=== PATIENT | male | born 1940 | race Caucasian/White ===

== ENCOUNTER 2017-02-16 12:53 | Inpatient (IN) | payer MEDICARE, OTHER ==
--- NOTE | ~2017-02-16 | CN ---
Consultation Report [facility] [address] [place]. [address] NAME: MEG FINK : 41 STATUS : ADM IN PAT#: [id number] AGE: 77 ADM/REG DATE : 02/16/17 MR#: [id number] REPORT SERV DATE: 02/18/17 DICTATED BY: MARCELINA CASTRO DATE: 02/18/17 REPORT STATUS : Draft TRANSCRIBED BY: MODL DATE: 02/18/17 GI CONSULTATION DATE OF CONSULTATION: 02/18/2017 A 77-year-old male patient admitted on 02/16/2017. REASON FOR CONSULTATION: Evaluation and management of hepatic encephalopathy. HISTORY OF PRESENT ILLNESS: Mr. Fink is a 77-year-old male patient, who is known to Dr. Gutierrez as well as Dr. John Teresa in the outpatient setting, who presented to [facility] on 02/16/2017, with a chief complaint of confusion. 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 The daughter had reported intermittent confusion for several days. He had been in and out of the ER a couple of times, was given two weeks of lactulose. After completing the course of lactulose, his confusion increased. He was last seen in the office by Dr. John Teresa on 01/04/2017, for his regular office visit. At that time, he was not having any issues with confusion. He had no changes in his medication regimen. His cirrhosis is felt to be of course decompensated secondary to pancytopenia, portal hypertension, history of variceal GI bleeding. At that point in time, he was not a transplant candidate secondary to his other comorbidities. At that office visit, he had a MELD score of 13. He was to continue his torsemide at 100 but they were going to restart his spironolactone at 50 mg a day; however, that does not appear on his home medication sheet. His last ultrasound was in October with no signs of hepatocellular carcinoma. Currently he was admitted with an ammonia level of 99, it is 81 at present. Mr. Fink awakens with much prompting. After I have gotten him awake, he does know that he is at [facility]. He knows that the year is 2017. He is oriented to self, knows his date, and that the president is Mitchell Guthrie. In general, he has no asterixis. We were asked to evaluate him as he had not "fully improved from his hepatic encephalopathy." The patient's main complaint to me is toe pain. PAST MEDICAL HISTORY: He has a past medical history noted for cirrhosis, history of esophageal varices with banding, pancytopenia, ascites with previous paracentesis, coronary artery disease with a history of CABG, peripheral arterial disease with a history of bilateral CEAs, anemia, type 2 diabetes, hyperlipidemia, atrial fibrillation, chronic kidney disease, depression, and pacemaker placement. FAMILY HISTORY: Noncontributory from a GI standpoint. SOCIAL HISTORY: Past tobacco. No alcohol. No illicits. He does live with his daughter. SURGICAL HISTORY: Cataract surgery, bilateral carotid endarterectomy with vein surgery, CABG with redo, hernia repair, pacemaker placement, and circumcision. Consultation Report [address] [place]. [address] NAME: MEG FINK : 41 STATUS : ADM IN [facility]#: [id number] AGE: 77 ADM/REG DATE : 02/16/17 MR#: [id number] REPORT SERV DATE: 02/18/17 DICTATED BY: MARCELINA CASTRO DATE: 02/18/17 REPORT STATUS : Draft TRANSCRIBED BY: TAY DATE: 02/18/17 ALLERGIES: TO MORPHINE. HOME MEDICATIONS: 1. Albuterol. 2. Aspirin. 3. Lipitor. 4. Coreg. 5. Plavix. 6. Lanoxin. 7. Advair. 8. Levemir. 9. Humalog. 10.Imdur. 11.Constulose. 12.Singulair. 13.Spiriva. 14.Demadex. REVIEW OF SYSTEMS: A 10-point review of systems was obtained with pertinent positives being addressed in the history of present illness. PHYSICAL EXAMINATION: VITAL SIGNS: Temperature 98.2, pulse is 51, respirations 16, and blood pressure 130/60. NEUROLOGIC: Reveals a somewhat groggy male who awakens with much prompting. After awakening him, he is oriented to self, year, place, time, and President. GENERAL: He is cooperative. He is in no acute distress. He has no signs of asterixis being noted on exam. HEAD, EARS, EYES, NOSE, AND THROAT: He has no icterus. Pupils are equal, round, reactive to light and accommodation. Normocephalic and atraumatic. NECK: No JVD. No palpable nodes. Supple. LUNGS: Decreased throughout with normal respiratory effort exhibited. CARDIOVASCULAR SYSTEM: Regular rate and rhythm. ABDOMEN: Soft, but he has notable ascites and non-tense. He has no appreciable abdominal pain. He does have a noted umbilical hernia. EXTREMITIES: No edema. Normal distal pulses. SKIN: Warm, dry, and intact. He has noted telangiectasias as well as spider angiomas. PERTINENT LABORATORY DATA: Sodium 144, potassium 3.5, BUN 26, and creatinine 1.55. White count 4.6, hemoglobin 11.3, hematocrit 33.9, total bilirubin 1.5, alkaline phosphatase 124, ALT 19, AST 27, and ammonia 81. CT scan done on the without contrast shows cirrhosis with portal hypertension including mild to moderate ascites; splenomegaly; gastroesophageal varices; splenorenal shunt with respective recanalization of the umbilical vein; severe aortoiliac atherosclerotic disease; and urinary bladder retention with no bladder wall Consultation Report [place] [id number] [facility] [place]. [address] NAME: MEG FINK : 41 STATUS : ADM IN [facility]#: [id number] AGE: 77 ADM/REG DATE : 02/16/17 MR#: [id number] REPORT SERV DATE: 02/18/17 DICTATED BY: MARCELINA CASTRO DATE: 02/18/17 REPORT STATUS : Draft TRANSCRIBED BY: TAY DATE: 02/18/17 thickening. ASSESSMENT AND PLAN: 1. Hepatic encephalopathy. Currently on lactulose and rifaximin. 2. Cirrhosis, cryptogenic, likely related to [place], decompensated secondary to portal hypertension, GI bleeding, and pancytopenia. 3. Ischemic cardiomyopathy. 4. Ascites. 5. Anemia with pancytopenia. 6. History of atrial fibrillation. No blood thinners on board secondary to GI bleeding. PLAN: 1. Continue his lactulose and rifaximin. We will add Florastor. 2. We will trend his ammonia. 3. Low-salt diet. 4. The patient needs close followup with Dr. Teresa. He was to be seen on 02/17/2017; however secondary to hospitalization, office visit was canceled. No family is present during the interview with the patient. ARLENE/TAY [place] ARACELI Smith / [id number] CC: Juan Montero DO
--- NOTE | ~2017-02-16 | HP ---
History And Physical [address] [place]. [address] NAME: MEG FINK : 41 STATUS : ADM IN PAT#: [id number] AGE: 77 ADM/REG DATE : 02/16/17 MR#: [id number] REPORT SERV DATE: 02/16/17 DICTATED BY: ODETTE MORALES DATE: 02/16/17 REPORT STATUS : Draft TRANSCRIBED BY: MODMilena DATE: 02/16/17 DATE OF ADMISSION: 02/16/2017 CHIEF COMPLAINT: Confusion. HISTORY OF PRESENT ILLNESS: Patient is a very pleasant 77-year-old white male. He has a longstanding history of cirrhosis. His daughter reports he has had intermittent confusion, but the last few days he has been very confused to the point where she has had difficulty really handling things. She has taken him to the ER couple of times. He got a couple of days of lactulose about two weeks ago and then did not take anymore as it caused diarrhea. They stopped it the last few days. He has had confusion, agitation. No fevers, no new cough, no dysuria, no abdominal pain. He does not really have any complaints today. He is awake and alert, but he can not even follow simple commands at times. He does answer questions, but sometimes inappropriately. PAST MEDICAL HISTORY: 1. Cirrhosis. 2. Esophageal varices with history of banding. 3. Pancytopenia. 4. Previous ascites. 5. CAD with history of CABG and redo CABG. 6. PAD with history of bilateral CEAs. 7. Anemia. 8. Diabetes. 9. Hyperlipidemia. 10.Atrial fibrillation. 11.Chronic kidney disease. 12.Depression. 13.Pacemaker placement. FAMILY HISTORY: Positive for diabetes, CAD. SOCIAL HISTORY: He quit smoking 26 years ago, does not drink any alcohol, and he lives with his daughter. PAST SURGICAL HISTORY: He has had: 1. Cataract surgery. 2. Bilateral CEAs. 3. Vein surgery. 4. CABG and then a redo CABG. 5. Bilateral hernia repair. 6. Pacemaker placement. 7. Circumcision. ALLERGIES: MORPHINE. History And Physical [address] [address] NAME: MEG FINK : 41 STATUS : ADM IN PAT#: [id number] AGE: 77 ADM/REG DATE : 02/16/17 MR#: [id number] REPORT SERV DATE: 02/16/17 DICTATED BY: ODETTE MORALES DATE: 02/16/17 REPORT STATUS : Draft TRANSCRIBED BY: TAY DATE: 02/16/17 REVIEW OF SYSTEMS: A 10-point review of systems obtained. Pertinent positives already mentioned in the HPI. PHYSICAL EXAMINATION: VITAL SIGNS: BP 140/46, temperature 98.1, Pulse 73, respiratory rate 17, sats 97%. GENERAL: Well-developed white male, in no obvious distress. HEENT: Normocephalic, atraumatic. Pupils are equal, round, and reactive. Throat is clear. NECK: Supple. HEART: Regular rate and rhythm. LUNGS: Grossly clear. ABDOMEN: Soft, nontender, nondistended. He does not appear to have significant ascites. EXTREMITIES: Warm and dry. SKIN: Intact without obvious rash or lesion. NEURO: He is alert and oriented to person, but not place or time. Sometimes he can follow simple instructions, at other times he can not. But he is pleasant and cooperative and awake and alert. He appears to have symmetrical strength and tone in all four extremities, but again it was difficult as he had a hard time cooperating. PSYCH: His mood and affect appeared to be appropriate. LAB AND X-RAY: AB.50/32/63. CBC: H and H 13 and 41, white count 5.8, platelets 90. Coags are relatively normal with INR of 1.5. Basic metabolic panel is normal. BUN and creatinine of 26 and 1.26, sodium is 146. Troponin is 0.03. Mag is 2.3. Digoxin 0.5. LFTs are pending. Lactate is 2.7. Ammonia is 99. BNP was 456. Chest x-ray, stable COPD changes, no infiltrate. Urinalysis shows 12 reds, but otherwise no whites. EKG shows atrial fibrillation with PVCs, left axis deviation. He has a history of known PVCs and low voltage. ASSESSMENT/PLAN: 1. Hepatic encephalopathy with elevated ammonia, likely secondary to stopping his lactulose. We will restart it today. We will culture his blood and watch his fever curve. He does not have a white count. He has no real focal symptoms. He does not have any abdominal pain. No significant ascites on exam. I am going to Hemoccult his stool to rule out bleeding, but his hemoglobin is stable. Likely with treatment of hepatic encephalopathy with lactulose, he should improve. 2. History of peripheral artery disease with bilateral CEAs. 3. History of coronary artery disease with previous CABG x2 separate surgeries. 4. History of atrial fibrillation. He is in atrial fibrillation today, but rate controlled. He is not a candidate for anticoagulation because of his cirrhosis, esophageal varices, etc. 5. Diabetes mellitus. We will add some sliding scale. 6. Chronic obstructive pulmonary disease, chronic, stable. 7. Chronic kidney disease, chronic, stable. 8. Deep venous thrombosis prophylaxis with SCDs. 9. Disposition pending above. History And Physical [address] [address] NAME: MEG FINK : 41 STATUS : ADM IN PAT#: [id number] AGE: 77 ADM/REG DATE : 02/16/17 MR#: [id number] REPORT SERV DATE: 02/16/17 DICTATED BY: ODETTE MORALES DATE: 02/16/17 REPORT STATUS : Draft TRANSCRIBED BY: TAY DATE: 02/16/17 ISRAEL/TAY Odette Morales M.D. / [id number] CC: Odette Morales M.D.
--- NOTE | ~2017-02-16 | DS ---
Discharge Summary [facility] [address] [place]. [address] NAME: MEG FINK : 41 STATUS : ADM IN [facility]#: [id number] AGE: 77 ADM/REG DATE : 02/16/17 MR#: [id number] REPORT SERV DATE: 02/24/17 DICTATED BY: MARY BERNARD DATE: 02/24/17 REPORT STATUS : Draft TRANSCRIBED BY: MODL DATE: 02/24/17 ADMISSION DATE: 02/16/2017 DISCHARGE DATE: 02/24/2017 CONDITION ON DISCHARGE: Stable. DISPOSITION: Discharged to home with home health nurse - the patient already has a hospital bed, walker, and a manual wheelchair all at home which he uses as he does have difficulty walking because of his PVD. DIAGNOSES ON DISCHARGE: Include: 1. Acute ischemia of the left lower extremity - status post angioplasty and atherectomy of the femoral popliteal stent and also posterior tibial arteries. The patient already has known peripheral vascular disease and has had a femoral-popliteal bypass of the left lower extremity before. Now, the patient feels much better after the repeat procedure and he is able to bear some weight on his left leg. He insists on going home. 2. All other chronic problems in this patient include the following. 3. Diabetes mellitus, insulin requiring - the patient requires high doses of insulin and his home insulin Levemir has been now increased to 20 units once a day. 4. Diabetic dietary education also has been given, and the patient is advised not to eat anything that is high in sugar and fat. The patient has been known to eat outside food and in between meals while in the hospital which is probably also responsible for driving his sugars up besides the prednisone that he is on for his chronic obstructive pulmonary disease. 5. Chronic kidney disease, stage III with a baseline creatinine of about 1.7 to 1.8. This is stable. 6. Peripheral vascular disease which is chronic status post femoropopliteal bypass of the left lower extremity. 7. Hepatic cirrhosis - this is not alcohol related. The patient has nonalcoholic steatohepatitis and cirrhosis of the liver from the nonalcoholic steatohepatitis itself. 8. Chronic obstructive pulmonary disease and chronic respiratory failure - the patient is on home oxygen at 3 L/minute for chronic hypoxic respiratory failure, and he already has this. At this time, code status of the patient is do not intubate only. Other than that, he is not willing to discuss anything further. All other diagnoses which are in the H and P, remain chronic and stable at this time, and these include pancytopenia, esophageal varices with a history of banding all from previous cirrhosis of the liver. Ascites previously, but not significant during this admission. 1. History of paroxysmal atrial fibrillation. This patient has had a pacemaker placement and is definitely not a candidate for anticoagulation as he does have liver disease. INR chronically stays elevated and also he is already on Plavix. No anticoagulation also because given the risk of falls. Discharge Summary [place] [id number] [place]. [address] NAME: MEG FINK : 41 STATUS : ADM IN [facility]#: [id number] AGE: 77 ADM/REG DATE : 02/16/17 MR#: [id number] REPORT SERV DATE: 02/24/17 DICTATED BY: MARY BERNARD DATE: 02/24/17 REPORT STATUS : Draft TRANSCRIBED BY: TAY DATE: 02/24/17 BRIEF HOSPITAL COURSE: Please see the Dr. Juan Montero's interim discharge summary all the way till 02/22/2017. I took care of this patient on 02/22/2017, 02/23/2017, and 02/24/2017 on the day of discharge, and during this period, the only new development that happened was acute ischemia of the left lower extremity. I promptly consulted Vascular Surgery, and the patient did undergo angioplasty. He first had an angiogram and angiogram did show atherosclerosis of femoral-popliteal bypass of the left lower extremity. The patient had to undergo atherectomy here, and also angioplasty of the left posterior tibial artery. After this, the patient's ischemic resolved. The patient does have a pulse on the left lower extremity, and is able to bear some weight in the left lower extremity. He does not complain of any more pain in the left leg. Hence, he is being discharged home in stable condition, and the most recent lab reports I have on this patient include a CBC that shows WBC of 5, hemoglobin of 10.9, hematocrit of 32.4, and platelet count of 68, which is chronically low in him. Comprehensive metabolic profile shows a sodium of 139, potassium 4, BUN 40, creatinine 1.8, which remains chronically elevated. LFTs actually are normal except for slight elevation in alkaline phosphatase at 190. ALT and AST are normal. Total bilirubin is 0.9. Albumin is 2.2. Globulin is 3.9. Chest x-ray: Portable chest x-ray shows previous CABG and some increased bilateral interstitial opacities likely edema, but otherwise no definitive infiltrate, and hence the patient does not require any antibiotics at this time. The patient did have a CT scan of the abdomen and pelvis without contrast, and this shows cirrhosis of the liver with portal hypertension, and mild to moderate ascites with splenomegaly; gastroesophageal varices, I remember this have been banded previously; splenorenal shunt. Hence, the patient is being sent home on the following medications and these include the followin. Plavix 75 mg once a day for PVD. 2. Singulair 10 mg once a day. 3. Lipitor 10 mg once a day. 4. Demadex 100 mg once a day. 5. Imdur 30 mg once a day. 6. Digoxin 0.125 mg once a day. 7. Coreg 6.25 mg p.o. b.i.d. 8. Lactulose 30 mL p.o. b.i.d., which he completed actually and he refuses to take any more. 9. Advair 1 puff twice a day. 10.Levemir which has been increased to 20 units at bedtime. 11.Aspirin 81 mg once a day. 12.Spiriva inhaler as directed once a day. I have spent about 40 minutes in coordinating discharge care of this patient including face- to-face encounter and summarizing this discharge. Discharge Summary [address] [address] NAME: MEG FINK : 41 STATUS : ADM IN PAT#: [id number] AGE: 77 ADM/REG DATE : 02/16/17 MR#: [id number] REPORT SERV DATE: 02/24/17 DICTATED BY: MARY BERNARD DATE: 02/24/17 REPORT STATUS : Draft TRANSCRIBED BY: TAY DATE: 02/24/17 DICTATED BY: Terence Soto/TAY Mary Bernard M.D. / [id number] CC: Mary Bernard M.D.
--- NOTE | ~2017-02-16 | IDS ---
Interim Discharge Summary [facility] [address] [place]. [address] NAME: MEG FINK : 41 STATUS : ADM IN PAT#: [id number] AGE: 77 ADM/REG DATE : 02/16/17 MR#: [id number] REPORT SERV DATE: 02/21/17 DICTATED BY: CHRIS MANCIA DATE: 02/21/17 REPORT STATUS : Draft TRANSCRIBED BY: MODL DATE: 02/21/17 ADMISSION DATE: 02/16/2017 DISCHARGE DATE: Date of interim discharge summary as well as progress note is 02/21/2017. SUBJECTIVE: The patient is still a bit confused. He thinks that this is March. Otherwise, he is in no complaints. OBJECTIVE: VITAL SIGNS: Stable. GENERAL: No acute distress. HEENT: PERRLA. No scleral icterus. CARDIOVASCULAR: Regular rate and rhythm. No murmur. RESPIRATORY: Decreased breath sounds bibasilarly. No wheezes. No crackles. ABDOMEN: Nontender, nondistended. Positive bowel sounds. EXTREMITIES: No edema. No ecchymosis. NEUROLOGIC: A and O x3 out of 4. Knows he is in the hospital. Knows what year it is. He does not know the month. He knows his name and knows where he is. LABORATORY DATA: Today, his white count was normal. He had a repeat urinalysis that was clean. 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 Sodium 141, potassium 4.2, chloride 110. His BUN is 25, creatinine 1.57, it appears to be at his baseline. We did a CT of his left lower extremity, rule out for any type of osteomyelitis nor any soft tissue abscess or infection, some induration, but no consistent sign radiographically of any infection, abscess, osteomyelitis. CT of the brain given his altered mental status not improved despite lactulose and rifaximin. No acute intracranial pathology. Ammonia today unfortunately is up at 81, was in the mid 40s prior despite lactulose 45 p.o. t.i.d. and rifaximin 550 p.o. b.i.d. INTERIM DISCHARGE SUMMARY: This is an unfortunate 77-year-old male, who apparently sees Dr. John Teresa and Dr. [place], has been diagnosed with non-alcoholic steatohepatitis, associated now cirrhosis, history of esophageal variceal bleed, portal hypertension, pancytopenia as a result. He has had some noncompliant behavior in the past per Dr. Teresa, some poor family followup as the daughter was unaware of that until this admission. His MELD historically has been 13, upon admission was 15. He is not felt to be a good transplant candidate secondary to comorbidities, age. The patient came in with significant hepatic encephalopathy, hyperammonemia near 100. He was going in and out of the emergency department and apparently was given an eight-day supply of lactulose and then ran out, came in here very encephalopathic. We had to get provide him enemas at first, so that then he could take p.o. lactulose. He was doing fairly well with lucidity mentally but still did not either know the year or the month and this again continues today. As a result, I had ordered a urinalysis to rule out for any other contribution and vitamin deficiencies. CT of the brain, there is no other seeming etiology Interim Discharge Summary [address] [address] NAME: MEG FINK : 41 STATUS : ADM IN PAT#: [id number] AGE: 77 ADM/REG DATE : 02/16/17 MR#: [id number] REPORT SERV DATE: 02/21/17 DICTATED BY: CHRIS MANCIA DATE: 02/21/17 REPORT STATUS : Draft TRANSCRIBED BY: MODL DATE: 02/21/17 for his encephalopathy aside from progressive hepatic encephalopathy. GI has been on board. At this point, I am going to increase his lactulose from 45 p.o. t.i.d. to 60 p.o. t.i.d. Continue his rifaximin. Given his compliance issues, debility, will need to go to facility. PT needs to re-evaluate for that. The patient apparently has had some issues with Aldactone. As a result, he is only on torsemide. Does not have overt ascites currently, but if were not to improve despite continued lactulose, may need to re-image and consider possible decompression given his MELD is creeping up. We did have to increase his Levemir regarding his glycemic needs. He does have a known history of carotid endarterectomy, PAD, and had an ulcer that appeared to have eschar tissue on it. As a result, I will get bilateral lower extremity arterial Dopplers given his known history of PAD and have Wound Care evaluate this, if they are positive, could consider possible vascular surgery. Defer to GI for any other further workup. Given his PAD risk, I am going to maximize his statin, there is only now 10. I spoke with the daughter who apparently is a police communications operator and encouraged her to go to every single outpatient followup visit with a new physician. All questions were answered, it took well over 30 minutes to do. KARLIT/JADAL Chris Mancia DO / [id number] CC: hCris Mancia DO
--- NOTE | ~2017-02-16 | OP ---
Record Of Operation [facility] [address] [place]. [address] NAME: MEG FINK : 42 STATUS : ADM IN PAT#: [id number] AGE: 77 ADM/REG DATE : 02/16/17 MR#: [id number] REPORT SERV DATE: 02/24/17 DICTATED BY: AP CERVANTES DATE: 02/23/17 REPORT STATUS : Draft TRANSCRIBED BY: MODL DATE: 02/23/17 DATE OF PROCEDURE: 02/23/2017 POSTOPERATIVE DIAGNOSIS: Peripheral arterial disease with ulceration, left foot. POSTOPERATIVE DIAGNOSIS: Peripheral arterial disease with ulceration, left foot. PROCEDURE: 1. Arteriogram, left lower extremity. 2. Atherectomy, left femoral-popliteal bypass and popliteal artery. 3. Angioplasty, left posterior tibial arteries. SURGEON: Ap Cervantes M.D. FELLOW: Miguel. ANESTHESIA: Local with sedation. COMPLICATIONS: None. ESTIMATED BLOOD LOSS: 30 mL. BRIEF HISTORY: The patient is a 77-year-old male with nonhealing ulcer on his left foot and minimal perfusion with an occluded bypass graft. It was felt he would benefit from arteriogram with intervention and this was discussed in detail with the patient and daughter. They expressed understanding and desired to proceed. PROCEDURE: The patient was taken to the operating room, placed in supine position. He was given IV sedation without complication. Both groins were prepped and draped in sterile fashion. Ultrasound was used to identify the common femoral artery on the right. 1% lidocaine was infiltrated in the skin and subcutaneous tissues. Under ultrasound guidance, an 18-gauge needle was used to access the proximal femoral-popliteal bypass graft on the right. Wire was passed in the aorta, the needle was removed, a 5-Vietnamese sheath placed, UF catheter was passed to the distal aorta. Aortogram shows the distal aorta to be patent. The iliac arteries, common and external were patent bilaterally. There appeared to be patent internal iliac on the right, it is not well seen on the left. There was a common iliac stent on the left, which appeared patent. On the right, the common femoral artery was patent with plaque and 50% stenosis. On the left, the common femoral was patent, profunda femoral was patent, superficial femoral was occluded, bypass graft was not seen either. Wire was placed in the catheter. Catheter was guided into the common femoral on the left. Arteriogram, left leg shows patent common femoral profunda femoral artery, occluded superficial femoral artery, occluded femoral-popliteal bypass graft. There was extensive collaterals throughout the thigh to below the knee with reconstitution of, what appears to be, the posterior tibial artery. Popliteal artery was occluded above and below the knee as well. The patient was given 4000 units of heparin intravenously. Received another 2000 units after 55 minutes. Attempts were made to access the bypass graft. Using the UF Record Of Operation [facility] [address] [place]. [address] NAME: MEG FINK : 42 STATUS : ADM IN PAT#: [id number] AGE: 77 ADM/REG DATE : 02/16/17 MR#: [id number] REPORT SERV DATE: 02/24/17 DICTATED BY: AP CERVANTES DATE: 02/23/17 REPORT STATUS : Draft TRANSCRIBED BY: TAY DATE: 02/23/17 catheter and Glidewire, the sheath was exchanged for a 6-Vietnamese sheath and a TrailBlazer was used to attempt to access the bypass graft as well, which was unsuccessful. Eventually attention was turned to the left thigh. 1% lidocaine infiltrated and under ultrasound guidance, the bypass graft was accessed with a micropuncture needle, wire passed easily proximally, needle was removed, micropuncture sheath was placed. A HitchedPic wire was passed to the external iliac artery and a snare used to grasp this from the 6-Vietnamese sheath, it was brought out the right groin. A TrailBlazer catheter was then able to be passed over the wire, into the bypass graft. Of note, on the first attempt at this, the access in the bypass graft was lost from the right groin, so it had to be repeated. With access now in the bypass graft, the Glidewire TrailBlazer catheter passed through the bypass graft past the popliteal stent into the tibioperoneal trunk and arteriogram here shows a patent tibioperoneal trunk, proximal posterior tibial and peroneal arteries. The sheath was then exchanged for a 745 sheath and a Spartacore wire was passed in the posterior tibial artery. A 2.4-3.4 jet stream was then used to atherectomize the femoral-popliteal bypass graft and popliteal artery to below the knee. Upon completion, arteriogram was performed with a TrailBlazer in the bypass graft shows the bypass graft and stent to be patent with a mild stenosis at the proximal portion of the stent. There was stenosis in the popliteal artery distal to the bypass. The origin of the bypass graft appears patent. Wire was guided into the posterior tibial artery. A 3 mm balloon was used to angioplasty the popliteal artery distally. Post arteriogram shows improved flow with mild residual irregularity. There was patent posterior tibial artery to the ankle with stenosis noted. Repeat arteriogram shows irregularity in the popliteal artery. This was angioplastied with a 4 x 40 drug-coated balloon and left inflated for 3 minutes. Post arteriogram shows it to be widely patent now. The same balloon was used to angioplasty the origin of the Viabahn stent and post arteriogram there shows it to be patent. Arteriogram of the remaining bypass shows it to be patent with prompt flow. The origin on multiple views appears to be widely patent. Arteriogram at the ankle shows there is stenosis in the posterior tibial artery with occlusion of the distal posterior tibial artery. A V-18 wire was passed into the plantar branches. A 2 x 220 balloon used to angioplasty the length of the posterior tibial artery. Post arteriogram shows prompt flow from the posterior tibial artery origin into the plantar branches now. This was felt to be an excellent result. Sheath was removed. Access closed with StarClose device on the right side without difficulty. The left side access had been removed and no bleeding was noted. The patient tolerated the procedure well and will be taken to the recovery room and then back to his room for continued care. LIVE/TAY Ap Cervantes M.D. / [id number] CC: Amy Lu M.D.
[~2017-02-16 12:53] MED LIST: ADVAIR INH; ASAB PO; BACDS PO; COREG3 PO; COREG6 PO; DEMA100 PO; DEMA10T PO; ELIQUIS 5 MG TAB5 MG PO; FEOSOL200 MG PO; FISH-EPA1000 MG PO; FOLIC PO; HUMALOG SC; IMDUR30 PO; IRON325 MG PO; L20 PO; L40 PO; L80 PO; LAN125 PO; LEVEMIR SC; LIPITOR10 PO; LIPITOR40 PO; LO-DOSE ASPIRIN81 M1 PO; ONE DAILY TABL0.4 MG PO; PLAVIX PO; PREV30 PO; PRILO PO; PROAIR HFA INH; TUMS E-X750 M2 PO; ZESTRIL30 MG PO; [UNRECOGNIZED DRUG - OTHER] OR; [UNRECOGNIZED DRUG - OTHER] PO
[2017-02-16 13:05] LABS: BE (BASE EXCESS) 1.6 MEQ/L (0 +/- 2.5); CARBOXYHEMOGLOBIN 2.3 % (0-3); HCO3 (ACTUAL BICARBONATE) 24.1 MEQ/L (23-27); HEMOBLOGIN CONTENT 13.4 G/DL (14-18); INSTRUMENT SERIAL # 8087; METHEMOGLOBIN 0.3 % (0-3); O2 CONTENT 16.8 VOL% (18-24); PCO2 (CO2 TENSION) 32 MMHG (35-45); PO2 (O2 TENSION) 63 MMHG (79-93); SAMPLE Arterial
[2017-02-16 13:46] LABS: BASOPHILS 1.4 %; BASOPHILS ABSOLUTE 0.08 10/3/uL (0.0-0.16); EOSINOPHILS ABSOLUTE 0.29 10/3/uL (0.0-0.53); HEMATOCRIT 40.9 % (40.0-51.0); HEMOGLOBIN 13.5 g/dL (13.6-17.8); IMMATURE GRANULOCYTES 0.2 %; IMMATURE GRANULOCYTES ABSOLUTE 0.01 10/3/uL (0.0-0.11); LYMPHOCYTES 14.6 %; LYMPHOCYTES ABSOLUTE 0.85 10/3/uL (0.67-4.30); MEAN CORPUSCULAR HEMOGLOB 29.5 pg (26.0-34.0); MEAN CORPUSCULAR VOLUME 89.3 fL (80-100); MEAN PLATELET VOLUME 9.7 fL (9.2-13.0); MONOCYTES 6.2 %; MONOCYTES ABSOLUTE 0.36 10/3/uL (0.21-1.20); NEUTROPHILS 72.6 %; NEUTROPHILS ABSOLUTE 4.23 10/3/uL (2.02-8.40); PLATELET COUNT 90 10/3/uL (150-400); RBC DISTRIBUTION WIDTH 17.2 % (12.0-16.0); RED CELL COUNT 4.58 10/6/uL (4.7-6.1); WHITE BLOOD CELLS 5.8 10/3/uL (4.5-10.5)
[2017-02-16 13:47] LABS: MANUAL DIFF NO %
[2017-02-16 13:57] LABS: INTERNATIONAL NORMAL RATI 1.5 UNITS (-); PROTIME (NOT ORD) 18.4 SEC (12.0-14.5)
[2017-02-16 14:12] LABS: BUN (BLOOD UREA NITROGEN) 26 MG/DL (6-23); CALCIUM, SERUM 8.8 MG/DL (8.5-10.4); CHEST PAIN PROFILE TAT 0 Hrs 32 Mins; CHLORIDE, SERUM 111 MMOL/L (96-112); CO2 (CARBON DIOXIDE) 26 MMOL/L (24-34); CREATININE 1.26 MG/DL (0.70-1.30); DIGOXIN 0.5 NG/ML (0.8-2.0); GFR AFRICAN AMERICAN 64 ML/MIN (>=60); GFR NON AFRICAN AMERICAN 55 ML/MIN (>=60); GLUCOSE, SERUM 179 MG/DL (60-99); POTASSIUM, SERUM 4.1 MMOL/L (3.5-5.3); SODIUM, SERUM 146 MMOL/L (135-148); TROPONIN I 0.03 NG/ML (<0.05)
[2017-02-16 14:19] LABS: LACTATE 2.7 MMOL/L (0.3-2.4)
[2017-02-16 14:26] LABS: B NATRIURETIC PEPTIDE (BNP) 456.2 PG/ML (< 100.0)
[2017-02-16 15:56] LABS: WBC (NOT ORDERED) (RFLEX) 0 (0-5)
[2017-02-16 16:07] LABS: ASCORBIC ACID (UR NOT ORDER) NEG (NEG); BILIRUBIN, URINE NEGATIVE (NEG); ER URINALYSIS TAT 0 Hrs 11 Mins; KETONE, URINE TRACE MG/DL (NEG); LEUKOCYTE ESTERASE(NOT OR NEG (NEG); NITRITE (URINE) NEG (NEG)
[2017-02-16] MEDS ORDERED: IMDUR30 PO (16:17)
[2017-02-16] MEDS ORDERED: PLAVIX PO (16:17)
[2017-02-16] MEDS ORDERED: SINGULAIR1 PO (16:17)
[2017-02-16] MEDS ORDERED: LIPITOR10 PO (16:17)
[2017-02-16] MEDS ORDERED: SPIRIVA INH (16:17)
[2017-02-16] MEDS ORDERED: DEMA100 PO (16:17)
[2017-02-16] MEDS ORDERED: LAN125 PO (16:18)
[2017-02-16] MEDS ORDERED: COREG6 PO (16:18)
[2017-02-16] MEDS ORDERED: ADVAIR100 INH (16:19)
[2017-02-16] MEDS ORDERED: CONSTULOSE PO (16:19)
[2017-02-16] MEDS ORDERED: ALBUTEROL0.083 % INH (16:19)
[2017-02-16] MEDS ORDERED: LEVEMFLXPN SC (16:20)
[2017-02-16] MEDS ORDERED: HUMALOGPEN SC (16:20)
[2017-02-16] MEDS ORDERED: HALF81 PO (16:31)
[2017-02-16 23:13] LABS: ALBUMIN 2.5 G/DL (3.5-5.0); TOTAL BILIRUBIN 1.7 MG/DL (0-1.2); TOTAL PROTEIN 6.7 G/DL (6.0-8.5)
[2017-02-16 23:14] LABS: DIRECT BILIRUBIN 0.6 MG/DL (0.0-0.4); INDIRECT BILIRUBIN(NOT ORDER) 1.1 MG/DL (0.1-0.9)
[2017-02-16 23:52] LABS: PROCALCITONIN 0.08 ng/mL (<0.5)
[2017-02-17 06:49] LABS: BASOPHILS 1.1 %; BASOPHILS ABSOLUTE 0.05 10/3/uL (0.0-0.16); EOSINOPHILS 3.4 %; EOSINOPHILS ABSOLUTE 0.16 10/3/uL (0.0-0.53); HEMOGLOBIN 11.9 g/dL (13.6-17.8); IMMATURE GRANULOCYTES 0.2 %; IMMATURE GRANULOCYTES ABSOLUTE 0.01 10/3/uL (0.0-0.11); LYMPHOCYTES 20.2 %; LYMPHOCYTES ABSOLUTE 0.94 10/3/uL (0.67-4.30); MEAN CORPUS HGB CONC 33.7 g/dL (32.0-36.0); MEAN CORPUSCULAR VOLUME 88.9 fL (80-100); MEAN PLATELET VOLUME 9.7 fL (9.2-13.0); MONOCYTES 8.4 %; MONOCYTES ABSOLUTE 0.39 10/3/uL (0.21-1.20); NEUTROPHILS 66.7 %; NEUTROPHILS ABSOLUTE 3.11 10/3/uL (2.02-8.40); PLATELET COUNT 76 10/3/uL (150-400); RBC DISTRIBUTION WIDTH 17.1 % (12.0-16.0); RED CELL COUNT 3.97 10/6/uL (4.7-6.1); WHITE BLOOD CELLS 4.7 10/3/uL (4.5-10.5)
[2017-02-17 06:51] LABS: HEMATOCRIT 35.3 % (40.0-51.0); MANUAL DIFF NO %
[2017-02-17 07:01] LABS: A/G RATIO 0.6 (0.7-1.9); ALBUMIN 2.4 G/DL (3.5-5.0); ALKALINE PHOSPHATASE 124 U/L (45-117); BUN (BLOOD UREA NITROGEN) 26 MG/DL (6-23); CALCIUM, SERUM 8.6 MG/DL (8.5-10.4); CHLORIDE, SERUM 114 MMOL/L (96-112); CO2 (CARBON DIOXIDE) 26 MMOL/L (24-34); GFR AFRICAN AMERICAN 56 ML/MIN (>=60); GFR NON AFRICAN AMERICAN 48 ML/MIN (>=60); GLOBULIN 3.9 G/DL (2.5-4.1); GLUCOSE, SERUM 274 MG/DL (60-99); POTASSIUM, SERUM 3.7 MMOL/L (3.5-5.3); SGOT(AST) 27 U/L (5-40); SGPT(ALT) 19 U/L (5-65); SODIUM, SERUM 147 MMOL/L (135-148); TOTAL BILIRUBIN 1.5 MG/DL (0-1.2); TOTAL PROTEIN 6.3 G/DL (6.0-8.5)
[2017-02-17 07:12] LABS: ANISOCYTOSIS 1+ (5-10/OIF) (0-5/OIF); PLATELET ESTIMATE DEC (ADEQUATE)
[2017-02-18 08:39] LABS: BASOPHILS 1.1 %; BASOPHILS ABSOLUTE 0.05 10/3/uL (0.0-0.16); EOSINOPHILS 5.4 %; EOSINOPHILS ABSOLUTE 0.25 10/3/uL (0.0-0.53); HEMATOCRIT 33.9 % (40.0-51.0); HEMOGLOBIN 11.3 g/dL (13.6-17.8); IMMATURE GRANULOCYTES 0.2 %; IMMATURE GRANULOCYTES ABSOLUTE 0.01 10/3/uL (0.0-0.11); LYMPHOCYTES 21.4 %; LYMPHOCYTES ABSOLUTE 0.99 10/3/uL (0.67-4.30); MEAN CORPUS HGB CONC 33.3 g/dL (32.0-36.0); MEAN CORPUSCULAR HEMOGLOB 29.7 pg (26.0-34.0); MEAN PLATELET VOLUME 9.6 fL (9.2-13.0); MONOCYTES 7.1 %; MONOCYTES ABSOLUTE 0.33 10/3/uL (0.21-1.20); NEUTROPHILS 64.8 %; NEUTROPHILS ABSOLUTE 2.99 10/3/uL (2.02-8.40); PLATELET COUNT 71 10/3/uL (150-400); RBC DISTRIBUTION WIDTH 17.1 % (12.0-16.0); RED CELL COUNT 3.81 10/6/uL (4.7-6.1); WHITE BLOOD CELLS 4.6 10/3/uL (4.5-10.5)
[2017-02-18 08:42] LABS: MANUAL DIFF NO %
[2017-02-18 08:54] LABS: BUN (BLOOD UREA NITROGEN) 26 MG/DL (6-23); CALCIUM, SERUM 7.8 MG/DL (8.5-10.4); CHLORIDE, SERUM 110 MMOL/L (96-112); CO2 (CARBON DIOXIDE) 27 MMOL/L (24-34); CREATININE 1.55 MG/DL (0.70-1.30); GFR AFRICAN AMERICAN 50 ML/MIN (>=60); GFR NON AFRICAN AMERICAN 43 ML/MIN (>=60); GLUCOSE, SERUM 241 MG/DL (60-99); PHOSPHORUS, SERUM 1.7 MG/DL (2.5-4.5); POTASSIUM, SERUM 3.5 MMOL/L (3.5-5.3); SODIUM, SERUM 144 MMOL/L (135-148)
[2017-02-18 10:34] LABS: GLYCOHEMOGLOBIN (HbA1c) 8.9 % (4.7-6.1)
[2017-02-19 04:25] LABS: BASOPHILS 0.9 %; BASOPHILS ABSOLUTE 0.04 10/3/uL (0.0-0.16); EOSINOPHILS 7.2 %; EOSINOPHILS ABSOLUTE 0.31 10/3/uL (0.0-0.53); HEMATOCRIT 32.4 % (40.0-51.0); HEMOGLOBIN 10.9 g/dL (13.6-17.8); LYMPHOCYTES 21.4 %; LYMPHOCYTES ABSOLUTE 0.92 10/3/uL (0.67-4.30); MEAN CORPUS HGB CONC 33.6 g/dL (32.0-36.0); MEAN CORPUSCULAR HEMOGLOB 29.9 pg (26.0-34.0); MEAN PLATELET VOLUME 9.4 fL (9.2-13.0); MONOCYTES 7.5 %; MONOCYTES ABSOLUTE 0.32 10/3/uL (0.21-1.20); PLATELET COUNT 69 10/3/uL (150-400); RBC DISTRIBUTION WIDTH 17.1 % (12.0-16.0); RED CELL COUNT 3.64 10/6/uL (4.7-6.1); WHITE BLOOD CELLS 4.3 10/3/uL (4.5-10.5)
[2017-02-19 04:27] LABS: MANUAL DIFF NO %
[2017-02-19 04:34] LABS: INTERNATIONAL NORMAL RATI 1.6 UNITS (-); PROTIME (NOT ORD) 19.1 SEC (12.0-14.5)
[2017-02-19 04:43] LABS: ALBUMIN 2.1 G/DL (3.5-5.0); ALKALINE PHOSPHATASE 114 U/L (45-117); BUN (BLOOD UREA NITROGEN) 24 MG/DL (6-23); CALCIUM, SERUM 7.6 MG/DL (8.5-10.4); CHLORIDE, SERUM 114 MMOL/L (96-112); CO2 (CARBON DIOXIDE) 28 MMOL/L (24-34); CREATININE 1.54 MG/DL (0.70-1.30); DIRECT BILIRUBIN 0.5 MG/DL (0.0-0.4); GFR AFRICAN AMERICAN 50 ML/MIN (>=60); GFR NON AFRICAN AMERICAN 43 ML/MIN (>=60); GLUCOSE, SERUM 112 MG/DL (60-99); PHOSPHORUS, SERUM 2.5 MG/DL (2.5-4.5); POTASSIUM, SERUM 3.5 MMOL/L (3.5-5.3); SGOT(AST) 25 U/L (5-40); SGPT(ALT) 17 U/L (5-65); SODIUM, SERUM 148 MMOL/L (135-148); TOTAL BILIRUBIN 1.5 MG/DL (0-1.2); TOTAL PROTEIN 5.8 G/DL (6.0-8.5)
[2017-02-19 04:54] LABS: PLATELET ESTIMATE DEC (ADEQUATE)
[2017-02-19 04:55] LABS: ANISOCYTOSIS 1+ (5-10/OIF) (0-5/OIF)
[2017-02-20 07:05] LABS: BASOPHILS 1.1 %; BASOPHILS ABSOLUTE 0.06 10/3/uL (0.0-0.16); EOSINOPHILS 6.1 %; EOSINOPHILS ABSOLUTE 0.33 10/3/uL (0.0-0.53); HEMATOCRIT 34.3 % (40.0-51.0); HEMOGLOBIN 11.6 g/dL (13.6-17.8); IMMATURE GRANULOCYTES 0.4 %; IMMATURE GRANULOCYTES ABSOLUTE 0.02 10/3/uL (0.0-0.11); LYMPHOCYTES 17.1 %; LYMPHOCYTES ABSOLUTE 0.92 10/3/uL (0.67-4.30); MEAN CORPUS HGB CONC 33.8 g/dL (32.0-36.0); MEAN CORPUSCULAR HEMOGLOB 30.4 pg (26.0-34.0); MEAN CORPUSCULAR VOLUME 89.8 fL (80-100); MEAN PLATELET VOLUME 9.5 fL (9.2-13.0); MONOCYTES 7.1 %; MONOCYTES ABSOLUTE 0.38 10/3/uL (0.21-1.20); NEUTROPHILS 68.2 %; NEUTROPHILS ABSOLUTE 3.68 10/3/uL (2.02-8.40); PLATELET COUNT 68 10/3/uL (150-400); RBC DISTRIBUTION WIDTH 17.2 % (12.0-16.0); RED CELL COUNT 3.82 10/6/uL (4.7-6.1); WHITE BLOOD CELLS 5.4 10/3/uL (4.5-10.5)
[2017-02-20 07:13] LABS: MANUAL DIFF NO %
[2017-02-20 07:16] LABS: BUN (BLOOD UREA NITROGEN) 25 MG/DL (6-23); CALCIUM, SERUM 7.7 MG/DL (8.5-10.4); CHLORIDE, SERUM 110 MMOL/L (96-112); CO2 (CARBON DIOXIDE) 25 MMOL/L (24-34); CREATININE 1.57 MG/DL (0.70-1.30); GFR AFRICAN AMERICAN 49 ML/MIN (>=60); GFR NON AFRICAN AMERICAN 42 ML/MIN (>=60); GLUCOSE, SERUM 221 MG/DL (60-99); PHOSPHORUS, SERUM 2.5 MG/DL (2.5-4.5); POTASSIUM, SERUM 4.2 MMOL/L (3.5-5.3); SODIUM, SERUM 141 MMOL/L (135-148)
[2017-02-20 07:45] LABS: ANISOCYTOSIS 1+ (5-10/OIF) (0-5/OIF); PLATELET ESTIMATE DEC (ADEQUATE)
[2017-02-20 20:11] LABS: ASCORBIC ACID (UR NOT ORDER) NEG (NEG); BILIRUBIN, URINE NEGATIVE (NEG); KETONE, URINE NEGATIVE (NEG); LEUKOCYTE ESTERASE(NOT OR NEG (NEG); WBC (NOT ORDERED) (RFLEX) < 1 (0-5)
[2017-02-21 06:33] LABS: BASOPHILS 0.9 %; BASOPHILS ABSOLUTE 0.04 10/3/uL (0.0-0.16); EOSINOPHILS 5.4 %; EOSINOPHILS ABSOLUTE 0.23 10/3/uL (0.0-0.53); HEMATOCRIT 32.1 % (40.0-51.0); HEMOGLOBIN 10.9 g/dL (13.6-17.8); IMMATURE GRANULOCYTES 0.2 %; IMMATURE GRANULOCYTES ABSOLUTE 0.01 10/3/uL (0.0-0.11); LYMPHOCYTES 18.6 %; MEAN CORPUSCULAR HEMOGLOB 30.4 pg (26.0-34.0); MEAN CORPUSCULAR VOLUME 89.4 fL (80-100); MEAN PLATELET VOLUME 9.8 fL (9.2-13.0); NEUTROPHILS 67.9 %; NEUTROPHILS ABSOLUTE 2.91 10/3/uL (2.02-8.40); PLATELET COUNT 58 10/3/uL (150-400); RBC DISTRIBUTION WIDTH 17.3 % (12.0-16.0); RED CELL COUNT 3.59 10/6/uL (4.7-6.1); WHITE BLOOD CELLS 4.3 10/3/uL (4.5-10.5)
[2017-02-21 06:34] LABS: MANUAL DIFF NO %
[2017-02-21 06:43] LABS: CHLORIDE, SERUM 109 MMOL/L (96-112); CO2 (CARBON DIOXIDE) 27 MMOL/L (24-34); CREATININE 1.62 MG/DL (0.70-1.30); GFR AFRICAN AMERICAN 47 ML/MIN (>=60); GFR NON AFRICAN AMERICAN 41 ML/MIN (>=60); GLUCOSE, SERUM 203 MG/DL (60-99); PHOSPHORUS, SERUM 2.9 MG/DL (2.5-4.5); POTASSIUM, SERUM 4.1 MMOL/L (3.5-5.3); SODIUM, SERUM 142 MMOL/L (135-148)
[2017-02-21 06:48] LABS: BUN (BLOOD UREA NITROGEN) 32 MG/DL (6-23)
[2017-02-21 06:58] LABS: PLATELET ESTIMATE DEC (ADEQUATE); RBC MORPHOLOGY NORM (NORMAL)
[2017-02-22 07:15] LABS: BUN (BLOOD UREA NITROGEN) 32 MG/DL (6-23); CALCIUM, SERUM 8.1 MG/DL (8.5-10.4); CHLORIDE, SERUM 111 MMOL/L (96-112); CO2 (CARBON DIOXIDE) 25 MMOL/L (24-34); CREATININE 1.54 MG/DL (0.70-1.30); GFR AFRICAN AMERICAN 50 ML/MIN (>=60); GFR NON AFRICAN AMERICAN 43 ML/MIN (>=60); GLUCOSE, SERUM 243 MG/DL (60-99); PHOSPHORUS, SERUM 3.2 MG/DL (2.5-4.5); POTASSIUM, SERUM 3.8 MMOL/L (3.5-5.3); SODIUM, SERUM 142 MMOL/L (135-148)
[2017-02-22 07:16] LABS: BASOPHILS 0.9 %; BASOPHILS ABSOLUTE 0.04 10/3/uL (0.0-0.16); EOSINOPHILS 5.2 %; EOSINOPHILS ABSOLUTE 0.23 10/3/uL (0.0-0.53); HEMATOCRIT 32.3 % (40.0-51.0); HEMOGLOBIN 10.9 g/dL (13.6-17.8); IMMATURE GRANULOCYTES 0.2 %; IMMATURE GRANULOCYTES ABSOLUTE 0.01 10/3/uL (0.0-0.11); LYMPHOCYTES 20.3 %; MEAN CORPUS HGB CONC 33.7 g/dL (32.0-36.0); MEAN CORPUSCULAR HEMOGLOB 30.5 pg (26.0-34.0); MEAN CORPUSCULAR VOLUME 90.5 fL (80-100); MEAN PLATELET VOLUME 10.3 fL (9.2-13.0); MONOCYTES 8.4 %; MONOCYTES ABSOLUTE 0.37 10/3/uL (0.21-1.20); NEUTROPHILS ABSOLUTE 2.88 10/3/uL (2.02-8.40); PLATELET COUNT 62 10/3/uL (150-400); RBC DISTRIBUTION WIDTH 17.1 % (12.0-16.0); RED CELL COUNT 3.57 10/6/uL (4.7-6.1); WHITE BLOOD CELLS 4.4 10/3/uL (4.5-10.5)
[2017-02-22 07:17] LABS: MANUAL DIFF NO %
[2017-02-22 07:49] LABS: ANISOCYTOSIS 1+ (5-10/OIF) (0-5/OIF); PLATELET ESTIMATE DEC (ADEQUATE)
[2017-02-22 07:50] LABS: HYPOCHROMIA 1+ (3-10/OIF) (0-2/OIF)
[2017-02-23 06:35] LABS: BASOPHILS 0.8 %; BASOPHILS ABSOLUTE 0.04 10/3/uL (0.0-0.16); EOSINOPHILS 4.6 %; EOSINOPHILS ABSOLUTE 0.22 10/3/uL (0.0-0.53); HEMATOCRIT 32.1 % (40.0-51.0); HEMOGLOBIN 10.7 g/dL (13.6-17.8); IMMATURE GRANULOCYTES 0.2 %; IMMATURE GRANULOCYTES ABSOLUTE 0.01 10/3/uL (0.0-0.11); LYMPHOCYTES 14.6 %; MEAN CORPUS HGB CONC 33.3 g/dL (32.0-36.0); MEAN CORPUSCULAR HEMOGLOB 30.2 pg (26.0-34.0); MEAN CORPUSCULAR VOLUME 90.7 fL (80-100); MEAN PLATELET VOLUME 9.7 fL (9.2-13.0); MONOCYTES 10.2 %; MONOCYTES ABSOLUTE 0.49 10/3/uL (0.21-1.20); NEUTROPHILS 69.6 %; NEUTROPHILS ABSOLUTE 3.34 10/3/uL (2.02-8.40); PLATELET COUNT 61 10/3/uL (150-400); RBC DISTRIBUTION WIDTH 17.2 % (12.0-16.0); RED CELL COUNT 3.54 10/6/uL (4.7-6.1); WHITE BLOOD CELLS 4.8 10/3/uL (4.5-10.5)
[2017-02-23 06:38] LABS: MANUAL DIFF NO %
[2017-02-23 06:40] LABS: INTERNATIONAL NORMAL RATI 1.5 UNITS (-); PARTIAL THROMBO TIME 32.4 SEC (22.5-37.2); PROTIME (NOT ORD) 17.5 SEC (12.0-14.5)
[2017-02-23 06:55] LABS: A/G RATIO 0.6 (0.7-1.9); ALBUMIN 2.2 G/DL (3.5-5.0); BUN (BLOOD UREA NITROGEN) 33 MG/DL (6-23); CALCIUM, SERUM 7.9 MG/DL (8.5-10.4); CHLORIDE, SERUM 112 MMOL/L (96-112); CO2 (CARBON DIOXIDE) 24 MMOL/L (24-34); CREATININE 1.44 MG/DL (0.70-1.30); GFR AFRICAN AMERICAN 54 ML/MIN (>=60); GFR NON AFRICAN AMERICAN 47 ML/MIN (>=60); GLOBULIN 3.8 G/DL (2.5-4.1); GLUCOSE, SERUM 212 MG/DL (60-99); PHOSPHORUS, SERUM 2.8 MG/DL (2.5-4.5); POTASSIUM, SERUM 3.9 MMOL/L (3.5-5.3); SGOT(AST) 32 U/L (5-40); SGPT(ALT) 25 U/L (5-65); SODIUM, SERUM 143 MMOL/L (135-148)
[2017-02-23 06:58] LABS: ALKALINE PHOSPHATASE 183 U/L (45-117)
[2017-02-24 06:19] LABS: BASOPHILS 0.8 %; BASOPHILS ABSOLUTE 0.04 10/3/uL (0.0-0.16); EOSINOPHILS 2.8 %; EOSINOPHILS ABSOLUTE 0.14 10/3/uL (0.0-0.53); HEMATOCRIT 32.4 % (40.0-51.0); HEMOGLOBIN 10.9 g/dL (13.6-17.8); IMMATURE GRANULOCYTES 0.4 %; IMMATURE GRANULOCYTES ABSOLUTE 0.02 10/3/uL (0.0-0.11); LYMPHOCYTES 13.3 %; LYMPHOCYTES ABSOLUTE 0.66 10/3/uL (0.67-4.30); MEAN CORPUS HGB CONC 33.6 g/dL (32.0-36.0); MEAN PLATELET VOLUME 11.3 fL (9.2-13.0); MONOCYTES 11.1 %; MONOCYTES ABSOLUTE 0.55 10/3/uL (0.21-1.20); NEUTROPHILS 71.6 %; NEUTROPHILS ABSOLUTE 3.56 10/3/uL (2.02-8.40); PLATELET COUNT 68 10/3/uL (150-400); RBC DISTRIBUTION WIDTH 17.4 % (12.0-16.0); RED CELL COUNT 3.52 10/6/uL (4.7-6.1)
[2017-02-24 06:21] LABS: MANUAL DIFF NO %
[2017-02-24 06:30] LABS: A/G RATIO 0.6 (0.7-1.9); ALBUMIN 2.2 G/DL (3.5-5.0); ALKALINE PHOSPHATASE 190 U/L (45-117); CALCIUM, SERUM 7.3 MG/DL (8.5-10.4); CHLORIDE, SERUM 108 MMOL/L (96-112); CO2 (CARBON DIOXIDE) 21 MMOL/L (24-34); CREATININE 1.81 MG/DL (0.70-1.30); GFR AFRICAN AMERICAN 41 ML/MIN (>=60); GFR NON AFRICAN AMERICAN 36 ML/MIN (>=60); GLOBULIN 3.9 G/DL (2.5-4.1); PHOSPHORUS, SERUM 3.1 MG/DL (2.5-4.5); SGOT(AST) 34 U/L (5-40); SGPT(ALT) 24 U/L (5-65); SODIUM, SERUM 139 MMOL/L (135-148); TOTAL BILIRUBIN 0.9 MG/DL (0-1.2); TOTAL PROTEIN 6.1 G/DL (6.0-8.5)
[2017-02-24 06:36] LABS: BUN (BLOOD UREA NITROGEN) 40 MG/DL (6-23); GLUCOSE, SERUM 504 MG/DL (60-99)
[2017-02-24 06:53] LABS: ANISOCYTOSIS 1+ (5-10/OIF) (0-5/OIF); BAND NEUTROPHILS 5 %; IMMATURE GRANS ABSOLUTE (CALC) 0.15 10/3/uL (0.0-0.11); LYMPHOCYTES 5 %; LYMPHOCYTES ABSOLUTE (CALC) 0.25 10/3/uL (0.67-4.30); METAMYELOCYTES 3 %; MONOCYTES 9 %; MONOCYTES ABSOLUTE (CALC) 0.45 10/3/uL (0.21-1.20); NEUTROPHILS ABSOLUTE (CALC) 4.15 10/3/uL (2.02-8.40); SEGMENTED NEUTROPHIL (0) 78 %; TOTAL NUCLEATED CELLS 100
[2017-02-24 06:54] LABS: ELLIPTOCYTES 1+ (3-10/OIF) (0-2/OIF); POLYCHROMASIA 1+ (2-5/OIF) (0-1/OIF); TARGET CELLS OCC (1-2/OIF) (0-1/OIF)
[2017-02-24] MEDS ORDERED: STERAPRED5 MG (13:51)
[2017-03-03] MEDS ORDERED: FISH-EPA1000 MG PO (09:45)
[2017-03-06] MEDS ORDERED: SPIRO50 PO (18:52)
[2017-03-06] MEDS ORDERED: CIP5 PO (18:53)
[2017-03-06] MEDS ORDERED: LAN125 PO (18:53)
[2017-03-06] MEDS ORDERED: COREG6 PO (18:54)
[2017-03-06] MEDS ORDERED: Generlac 10 Gm/15 Ml PO (18:54)
[2017-03-06] MEDS ORDERED: IMDUR30 PO (18:59)
[2017-03-06] MEDS ORDERED: LIPITOR10 PO (19:00)
[2017-03-06] MEDS ORDERED: DEMA100 PO (19:00)
[2017-03-06] MEDS ORDERED: PLAVIX PO (19:00)
[2017-03-06] MEDS ORDERED: SINGULAIR1 PO (19:01)
[2017-03-06] MEDS ORDERED: SPIRIVA INH (19:01)
[2017-03-06] MEDS ORDERED: ALBUTEROL0.083 % INH (19:02)
[2017-03-06] MEDS ORDERED: ASAB PO (19:02)
[2017-03-06] MEDS ORDERED: HUMALOG SC (19:03)
[2017-03-06] MEDS ORDERED: LEVEMIR SC (19:03)
[2017-03-11] MEDS ORDERED: IODOSORB TOP (12:14)
[2017-03-11] MEDS ORDERED: HUMALOG SC (12:15)
[2017-03-11] MEDS ORDERED: XIFAXAN550 MG PO (12:32)
[2017-04-13] MEDS ORDERED: ADDERALL5 MG PO (14:23)
[2017-04-13] MEDS ORDERED: SPIRO50 PO (14:23)
== END 2017-02-24 14:51 | disposition home health service (06) | DRG 424 ==
LOC: ER 12:53 → ER/OF 18:09 → 5SO 18:48
PROVIDERS: Internal Medicine; Nurse Practitioner; Surgery
PROC: B41G1ZZ Fluoroscopy of Left Lower Extremity Arteries using Low Osmolar Contrast (ICD-10-PCS; principal; 2017-02-23 14:45)
PROC: 041 Lower Arteries, Bypass (ICD-10-PCS; 2017-02-23 14:45)
PROC: 047S3ZZ Dilation of Left Posterior Tibial Artery, Percutaneous Approach (ICD-10-PCS; 2017-02-23 14:45)
DX: K72.90 Hepatic failure, unspecified without coma (principal); N17.9 Acute kidney failure, unspecified; J96.11 Chronic respiratory failure with hypoxia; D61.818 Other pancytopenia; K76.6 Portal hypertension; N18.3 Chronic kidney disease, stage 3 (moderate); I25.5 Ischemic cardiomyopathy; I25.10 Atherosclerotic heart disease of native coronary artery without angina pectoris; I48.2 Chronic atrial fibrillation; K75.81 Nonalcoholic steatohepatitis (NASH); L97.529 Non-pressure chronic ulcer of other part of left foot with unspecified severity; E11.9 Type 2 diabetes mellitus without complications; I73.9 Peripheral vascular disease, unspecified; F32.9 Major depressive disorder, single episode, unspecified; K74.69 Other cirrhosis of liver; Z95.0 Presence of cardiac pacemaker; Z83.3 Family history of diabetes mellitus; Z87.891 Personal history of nicotine dependence; Z88.5 Allergy status to narcotic agent; Z95.1 Presence of aortocoronary bypass graft; Z82.49 Family history of ischemic heart disease and other diseases of the circulatory system; Z99.3 Dependence on wheelchair; Z79.82 Long term (current) use of aspirin; Z79.02 Long term (current) use of antithrombotics/antiplatelets; Z79.4 Long term (current) use of insulin; Z79.899 Other long term (current) drug therapy
CPT/HCPCS: 36246; 36600; 37225; 37228; 70450; 71010; 73630-LT; 73630-RT; 73700-LT; 73700-RT; 74176; 75625; 75710; 80048; 80053; 80076; 80162; 81001; 82140; 82272; 82805; 82962; 83036; 83605; 83735; 83880; 84100; 84132; 84145; 84484; 85025; 85610; 85730; 87040; 93005; 93925; 93970; 94640; 97162-GP; 97530-GP; 99285; A9270-GY; C1714; C1725; C1769; C1894; C2623; G8978-CK-GP; G8979-CI-GP; J0690; J1170; J2405; J3010; J3411; Q9967